=== PATIENT | female | born 1955 | race African-American/Black ===

== ENCOUNTER 2017-07-03 15:28 | Emergency (ER) | payer OTHER ==
[2017-07-03] MEDS ORDERED: LET GEL TOPICAL 1 EA SYR TP ONE (16:00)
[2017-07-03] MEDS ORDERED: ACETAMINOPHEN 500 MG TAB PO ONE (16:00)
[2017-07-03] MEDS ORDERED: traMADol 50 MG TAB PO ONE (16:00)
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
[2017-07-03 16:23] VITALS: RESP 18
[2017-07-03 16:51] VITALS: BP 140/89; PULSE 80; TEMP 99; O2SAT 96
== END 2017-07-03 16:50 | disposition home or self-care (01) ==
LOC: CED 15:28
PROC: 2W2MX4Z Dressing of Left Lower Extremity using Bandage (ICD-10-PCS; principal; 2017-07-03)
DX: T24.202A Burn of second degree of unspecified site of left lower limb, except ankle and foot, initial encounter (principal); I10 Essential (primary) hypertension; T31.0 Burns involving less than 10% of body surface; Z87.891 Personal history of nicotine dependence; X16.XXXA Contact with hot heating appliances, radiators and pipes, initial encounter; Y92.015 Private garage of single-family (private) house as the place of occurrence of the external cause

== ENCOUNTER → 2017-10-15 | Outpatient (CLI) | payer OTHER | LOC: CIMAGING 07:43 | PROVIDERS: ATTEND Internal Medicine | DX: Z12.31 Encounter for screening mammogram for malignant neoplasm of breast (principal) | CPT/HCPCS: G0202 ==

== ENCOUNTER 2018-09-13 08:46 | Emergency (ER) | payer OTHER ==
[2018-09-13 09:03] VITALS: BP 133/83
[2018-09-13] MEDS ORDERED: predniSONE 20 MG TAB PO ONE (09:37)
--- NOTE | 2018-09-13 09:41 | EDPHY ---
H & P Time Seen by Provider: 09/13/18 08:48 HPI/ROS: CHIEF COMPLAINT: Rash, allergic reaction HISTORY OF PRESENT ILLNESS: Patient states that on Saturday she noticed swelling to her ears, there itchy, hot. She states the day before on Saturday she rake up leaves in her own yd as well as some of her neighbor's yd. Over the next few days she developed rash to her face and ears as well as on bilateral forearms. She describes it as itchy and burning. She tried topical cortisone cream, oral Benadryl with little relief. She states this morning she noticed facial swelling and came in for evaluation. She denies shortness of breath. She has no chest pain, wheezing, oral swelling or voice changes. She denies new medications. No other known food allergies. Is allergic to tramadol. REVIEW OF SYSTEMS: Constitutional: No fever, no chills. Eyes: No discharge. ENT: No sore throat. Cardiovascular: No chest pain, no palpitations. Respiratory: No cough, no shortness of breath. Gastrointestinal: No abdominal pain, no vomiting. Genitourinary: No dysuria. Musculoskeletal: No back pain. Skin: Per HPI Neurological: No headache. General Appearance: Alert, no distress. Eyes: Pupils equal and round no pallor or injection. ENT, Mouth: Mucous membranes moist. Respiratory: There are no retractions, lungs are clear to auscultation. Cardiovascular: Regular rate and rhythm. Gastrointestinal: Abdomen is soft and nontender, no masses, bowel sounds normal. Neurological: Awake and alert, cranial nerves intact. Skin: Warm and dry. Fine papular rash with mild swelling to ears and face. Also present bilaterally to forearms, spares palms. No skin color changes. No blisters or bull eye. Musculoskeletal: Neck is supple nontender. Extremities are symmetrical, full range of motion, no edema. Psychiatric: Patient is oriented X 3, there is no agitation. Medical/surgical history: Ulcerative colitis, lupus, coronary artery disease with myocardial infarction in 1988, pericarditis, hypertension, high cholesterol , angina. Surgeries include hysterectomy, cholecystectomy, orthopedic surgery to left knee and shoulder. Social history: Previous smoker but none for 23 years. Rare EtOH. Denies drugs. Smoking Status: Former smoker Constitutional: Initial Vital Signs Temperature (C) 36.7 C 09/13/18 08:57 Heart Rate 70 09/13/18 08:57 Respiratory Rate 16 09/13/18 08:57 Blood Pressure 133/83 H 09/13/18 08:57 O2 Sat (%) 93 09/13/18 08:57 O2 Delivery Mode Room Air Allergies/Adverse Reactions: tramadol [From Ultram] Allergy (Severe, Verified 09/13/18 08:52) Anaphylaxis Home Medications: Medication Instructions Recorded Multivitamins [Multivitamin (*)] 1 each PO DAILY 04/13/12 Bells-3 Fatty Acids [Bells-3] 1,000 mg PO HS 04/13/12 Cholecalciferol Vit D3 [Vitamin D3 1,000 units PO DAILY 10/19/14 (*)] DILTIAZEM HCL [DILTIAZEM 24HR ER] 240 mg PO HS 10/19/14 Herbals/Supplements -Info Only 1 ea PO DAILY 10/19/14 Hydrochlorothiazide [HCTZ (*)] 25 mg PO DAILY 10/19/14 LORazepam [Ativan (*)] 0.5 - 1 mg PO DAILY PRN 10/19/14 Mesalamine [Lialda] 2.4 gm PO BID 10/19/14 Nitroglycerin [Nitrostat 0.4 mg 0.4 mg SL PRN PRN 10/19/14 (*)] Vilazodone HCl [Viibryd] 40 mg PO DAILY 10/19/14 Eszopiclone [Lunesta] 10 09/13/18 Tazitia 09/13/18 predniSONE 40 mg PO DAILY #9 tab 09/13/18 Medical Decision Making Differential Diagnosis: Differential diagnosis includes but is not limited to anaphylaxis, angioedema, contact dermatitis, drug rash, other allergic reaction. After evaluation mild skin involvement only but likely represents allergic reaction. Has tried Benadryl and topical steroids without much improvement so will start her on a short course of prednisone. Discussed other conservative treatment at home. Reviewed return precautions. Stable for discharge. - Data Points Medications Given: Discontinued Medications Prednisone (Prednisone) 60 mg PO EDNOW ONE Stop: 09/13/18 09:38 Last Admin: 09/13/18 09:41 Dose: 60 mg Departure - Departure Clinical Impression: Rash Allergic reaction Qualifiers: Encounter type: initial encounter Qualified Code(s): T78.40XA - Allergy, unspecified, initial encounter Condition: Good Instructions: Prednisone (By mouth), General Allergic Reaction (ED) Additional Instructions: Take prednisone daily as discussed. He can also use Benadryl and topical treatments including Aveeno products. Return to the emergency department if symptoms get worse or you develop new symptoms such as shortness of breath or oral swelling. Follow up with her primary care physician as needed. Referrals: Alcon Chase MD [Primary Care Provider] - As per Instructions Prescriptions: predniSONE 40 mg PO DAILY #9 tab
== END 2018-09-13 09:45 | disposition home or self-care (01) ==
LOC: CED 08:46
DX: R21 Rash and other nonspecific skin eruption (principal); T78.40XA Allergy, unspecified, initial encounter; Z87.891 Personal history of nicotine dependence
CPT/HCPCS: 99283; J7512

== ENCOUNTER → 2019-03-27 | Outpatient (CLI) | payer OTHER | LOC: EMCIMAGING 09:53 | PROVIDERS: ATTEND Internal Medicine | DX: Z12.31 Encounter for screening mammogram for malignant neoplasm of breast (principal) | CPT/HCPCS: 77067-PN ==